=== PATIENT | male | born 1960 | race Caucasian/White ===

== ENCOUNTER → 2017-04-06 | Outpatient (CLI) | payer OTHER ==
[~2017-04-06] MED LIST: HYDR-3419 PO; HYDR-3714 PO
--- NOTE | 2017-04-06 16:23 | DIAGNOSTIC IMAGING REPORT ---
CHEST 2 VIEWS ROUTINE CLINICAL HISTORY: RECURRENT KIDNEY STONES, PT WENT TO LAB [facility] NEXT COMPARISON STUDY: No previous studies for comparison. FINDINGS: The bones soft tissues and hemidiaphragms are normal. The cardiomediastinal silhouette is normal. The lungs are clear. The pulmonary vasculature is normal. IMPRESSION: Negative chest. The above report was generated using voice recognition software. It may contain grammatical, syntax or spelling errors. Electronically signed by: Davidson Mckoy M.D. 04/06/2017 4:22 PM Dictated Date/Time: 04/06/2017 4:21 PM
--- NOTE | 2017-04-06 16:26 | DIAGNOSTIC IMAGING REPORT ---
[facility] CLINICAL HISTORY: RECURRENT KIDNEY STONES, PT WENT TO LAB [facility] NEXT COMPARISON STUDY: No previous studies for comparison. FINDINGS: Nonobstructive bowel pattern. Multiple calcifications overlying the left kidney. Largest overlies the left renal pelvis with a maximum dimension of 1.2 cm. Overlap artifact of the right kidney with bowel and associated bowel content. Nonspecific 3 mm calcification left soft tissue pelvis. IMPRESSION: Several left renal calcifications the largest measuring 1.2 cm overlying the left renal pelvis. Nonspecific 3 mm calcification left lateral pelvis. The above report was generated using voice recognition software. It may contain grammatical, syntax or spelling errors. Electronically signed by: Davidson Mckoy M.D. 04/06/2017 4:25 PM Dictated Date/Time: 04/06/2017 4:23 PM
== END ==
LOC: C.CPL 15:55
PROVIDERS: ATTEND Urology
DX: N20.0 Calculus of kidney (principal)

== ENCOUNTER → 2017-04-09 | Day surgery (SDC) | payer SELFPAY ==
[2017-04-08 09:07] VITALS: Ht 172.7 cm; Wt 81.8 kg
[~2017-04-09] VITALS: Ht 172.7 cm; Wt 81.8 kg
[~2017-04-09] MED LIST changes: +ATROPINE SULFATE 0.1 MG/ML 5ML SYR IV PRN; +CIPROFLOXACIN / D5W 400 MG IV SCH; +DEXAMETHASONE SOD INJ 4 MG/ML VIAL ONE; +EpHEDrine SULFATE INJ 50 MG/ML AMP IV PRN; +FENTANYL CITRATE INJ 50 MCG/1 ML 2 ML VIAL IV PRN; +FENTANYL CITRATE INJ 50 MCG/1 ML 2 ML VIAL ONE; +FLUMAZENIL 0.1 MG/1 ML 10 ML VIAL IV PRN; -HYDR-3419 PO; +LABETALOL HCL IV 5 MG/ML 20ML IV PRN; +LACTATED RINGER'S 1000ML 1,000 ML IV SCH; +LIDOCAINE HCL 2% 2 ML VIAL (20MG/ML) ONE; +MIDAZOLAM HCL 1 MG/ML 2ML VIAL ONE; +NALOXONE HCL 0.4 MG/1 ML VIAL/CARP IV PRN; +ONDANSETRON INJ 2 MG/ML 2 ML VIAL IV PRN; +ONDANSETRON INJ 2 MG/ML 2 ML VIAL ONE; +OXYCODONE/ACETAMINOPHEN 5-325 TAB PO PRN; +PATIENT'S ALLERGY INFO NEEDS ENTERED SCH; +PROPOFOL IV EMULSION 10 MG/ML 20 ML VIAL IV ONE
--- NOTE | 2017-04-09 08:10 | History & Physical Bridge Note ---
H&P Re-Evaluation Bridge Note: I have examined the patient, reviewed the History & Physical and in the interval since the performance of the History & Physical I have noted the following changes of clinical significance: No changes noted
--- NOTE | 2017-04-09 08:33 | [facility] Operative Report ---
Operative Report Operative Date Apr 09, 2017. Pre-Operative Diagnosis Left renal stone Post-Operative Diagnosis Same Procedure(s) Performed Left renal ESWL Surgeon [place] Wal[employer] Safety Specialist Surgeon(s) NA Estimated Blood Loss NA Findings Excellent stone fragmentation Drains NA Anesthesia [facility] Complication(s) None Disposition Recovery Room / PACU Indications 56 yo male with large L renal stone. L pelvic calcifications noted to be vascular on previous CT scan. Cipro and SCDs used. See H&P. Description of Procedure The patient was brought to the litho suite. He was correctly identified and the stone was visualized on his most recent x-rays. After the correct time out was performed the patient was positioned over the therapy head. An adequate level of anesthesia was administered. The extracorporeal shockwave lithotripsy treatment was then commenced. Please see the [place] [facility] Stone Management sheet for complete treatment summary. After completion of the procedure the patient was taken to the recovery room in stable condition. I attest to the content of the Intraoperative Record and any orders documented therein. Any exceptions are noted below.
--- NOTE | 2017-04-09 08:34 | Discharge Instructions ---
Discharge Instructions Date of Service Apr 09, 2017. Admission Reason for Admission: Stones Discharge Discharge Diagnosis / Problem: L renal stone s/p ESWL Discharge Goals Goal(s): Decrease discomfort, Improve function, Improve disease control, Therapeutic intervention Activity Recommendations Activity Limitations: as noted below Lifting Limitations: no more than 25 pounds, gradually increase as tolerated Exercise/Sports Limitations: rest today, gradually increase as tolerated May Resume Sexual Activity: when tolerated Shower/Bathe: no limitations Driving or Machine Use: resume 1 day after discharge . Instructions / Follow-Up Instructions / Follow-Up Follow-up in office as scheduled with [facility] Xray beforehand Current Hospital Diet Patient's current hospital diet: Discharge Diet Recommended Diet: Regular Diet Procedures Procedures Performed: Left renal ESWL Pending Studies Studies pending at discharge: no Medical Emergencies . Who to Call and When: Medical Emergencies: If at any time you feel your situation is an emergency, please call 911 immediately. . Non-Emergent Contact Non-Emergency issues call your: Urologist Call Non-Emergent contact if: you have a fever, temperature is above 101, your pain is not controlled, your pain is worsening, your pain is unusual for you, your pain is concerning you, you have any medication questions . . "Provider Documentation" section prepared by Trey Salvador. . VTE Core Measure Inpt VTE Proph given/why not?: SCD's
--- NOTE | 2017-04-09 09:08 | [facility] Post Operative Brief Note ---
Immediate Operative Summary Operative Date Apr 09, 2017. Pre-Operative Diagnosis Left Renal Stone Post-Operative Diagnosis Same Procedure(s) Performed Left Extracorporeal Shock Wave Lithotripsy Surgeon Dr. Calvin Salvador Data Analytics Specialist Surgeon(s) None Estimated Blood Loss 0 mL Findings Consistent with Post-Op Diagnosis Specimens None Drains None Anesthesia Type General Complication(s) none Disposition Accompanied Pt To Recover: no Disposition: Recovery Room / PACU
[2017-04-09 09:50] VITALS: TEMP 36.4
--- NOTE | 2017-04-09 09:57 | Anesthesia Progress Nt - [facility] ---
Anesthesia Post Op Note Date & Time Apr 09, 2017 at 09:57 Vital Signs Pain Intensity: 3 Vital Signs Past 12 Hours Date Time Temp Pulse Resp B/P (MAP) Pulse Ox O2 Delivery O2 Flow Rate FiO2 04/09/17 09:42 36.5 71 15 04/09/17 09:42 71 15 97 04/09/17 09:40 148/87 (99) 04/09/17 09:37 67 4 04/09/17 09:37 67 4 97 04/09/17 09:36 Room Air 04/09/17 09:35 144/90 (97) 04/09/17 09:32 61 0 100 04/09/17 09:32 61 0 04/09/17 09:30 135/83 (102) 04/09/17 09:27 61 0 04/09/17 09:27 61 0 100 04/09/17 09:25 151/82 (98) 04/09/17 09:22 68 5 99 04/09/17 09:22 67 5 04/09/17 09:21 136/78 (101) 04/09/17 09:17 63 13 135/88 (92) 04/09/17 09:17 13 04/09/17 09:12 36.5 64 16 135/88 97 Diffusion Mask 5 04/09/17 07:31 36.6 67 16 127/82 (97) 98 Room Air Notes Mental Status: alert / awake / arousable, participated in evaluation Pt Amnestic to Procedure: Yes Nausea / Vomiting: adequately controlled Pain: adequately controlled Airway Patency, RR, SpO2: stable & adequate BP & HR: stable & adequate Hydration State: stable & adequate Anesthetic Complications: no major complications apparent
[2017-04-09 10:16] VITALS: BP 137/88; PULSE 57; O2SAT 97
== END | disposition home or self-care (01) ==
LOC: X.SURG 07:18 → MERGE 10:00
PROVIDERS: ATTEND Urology
DX: N20.0 Calculus of kidney (principal); F17.200 Nicotine dependence, unspecified, uncomplicated; Z83.3 Family history of diabetes mellitus; Z82.49 Family history of ischemic heart disease and other diseases of the circulatory system; Z84.1 Family history of disorders of kidney and ureter